=== PATIENT | male | born 1990 | race Caucasian/White ===

== ENCOUNTER 2018-01-31 22:04 | Emergency (ER) | END 2018-02-01 01:19 | disposition left against medical advice (07) ==

== ENCOUNTER 2018-02-01 09:27 | Emergency (ER) | END 2018-02-01 12:23 | disposition home or self-care (01) ==

== ENCOUNTER 2018-07-24 10:43 | Emergency (ER) | payer OTHER ==
[~2018-07-24] VITALS: Ht 165.1 cm; Wt 93.0 kg
[~2018-07-24 10:43] MED LIST: ALBU17AE; FLUT1DIS23; HYDR-3498 PO; HYDR-4011 PO; IBUP-1542 PO; NAPR-985 PO
[2018-07-24 10:47] VITALS: BP 137/81; PULSE 98; RESP 24; Ht 165.1 cm; Wt 93.0 kg
[2018-07-24] MEDS ORDERED: ALBUTEROL 0.083% (NEB) 2.5 MG/3 ML AMP NEB STA (11:35)
[2018-07-24] MEDS ORDERED: predniSONE 20 MG TAB PO STA (11:35)
[2018-07-24] MEDS ORDERED: IPRATROPIUM (NEB) 0.5 MG/2.5 ML AMP NEB STA (11:35)
[2018-07-24] MEDS ORDERED: BECL10.6 IH (12:27)
[2018-07-24] MEDS ORDERED: D-ME118S24 PO (12:27)
[2018-07-24] MEDS ORDERED: PRED20TA PO (12:27)
--- NOTE | 2018-07-24 20:26 | ERD ---
ER Documentation Chief Complaint Chief Complaint productive cough with yellowish colored, thick sputum x 3 months HPI 27-year-old male presents for productive cough times 3 months. Patient notes that the cough is productive of yellowish sputum. She also has associated runny nose. Denies any fevers. Patient has been trying Mucinex, Robitussin, without relief. Patient does have a history of asthma. ROS All systems reviewed and are negative except as per history of present illness. Medications Home Meds Active Scripts Prednisone* (Prednisone*) 20 Mg Tab, 20 MG PO DAILY for asthma exacerbation for 3 Days, #3 TAB Prov:PHILOMENA BURCH DO 07/24/18 D-Methorphan Hb/P-Epd HCl/Bpm (Buorspejrk-Gciowgoshrl-Et Syr) 118 Ml Syrup, 5 ML PO Q4H PRN for COUGH for 7 Days, #1 BOTTLE Prov:PHILOMENA BURCH DO 07/24/18 Beclomethasone Dipropionate (Qvar Redihaler (40 MCG)) 10.6 Gm Hfa.aeroba, 10.6 GM IH BID for asthma for 7 Days, #1 INH Prov:PHILOMENA BURCH 07/24/18 Hydrocodone/Acetaminophen ([place] 5-325 Tablet) 1 Each Tablet, 1 TAB PO Q6H PRN for PAIN, #7 TAB Prov:JUAN RAMON DAVIDSON PA-C 02/01/18 Ibuprofen* (Motrin*) 600 Mg Tab, 600 MG PO Q6, #30 TAB Prov:JUAN RAMON DAVIDSON PA-C 02/01/18 Naproxen* (Naprosyn*) 500 Mg Tablet, 500 MG PO BID PRN for PAIN AND/OR INFLAMMATION, #30 TAB Prov:JENNIFFER THORNTON PA-C 06/19/15 Hydrocodone Bit-Acetaminophen* ([place]leton*) 5-325 Mg Tab, 1 TAB PO Q6 PRN for PAIN, #7 TAB Prov:JENNIFFER THORNTON PA-C 06/19/15 Reported Medications Albuterol (Ventolin) 17 Gm Aerosol 12/26/09 Fluticasone/Salmeterol (Advair 250-50 Diskus) 1 Disk W/Dev Disk.w.dev 12/26/09 Allergies Allergies: Coded Allergies: No Known Allergies (Verified Allergy, Mild, 7/24/18) PMhx/Soc History of Surgery: No Anesthesia Reaction: No Hx Neurological Disorder: No Hx Respiratory Disorders: Yes (asthma) Hx Cardiac Disorders: No Hx Psychiatric Problems: No Hx Miscellaneous Medical Probl: No Hx Alcohol Use: No Hx Substance Use: No Hx Tobacco Use: No Smoking Status: Never smoker Physical Exam Vitals Vital Signs Date Temp Pulse Resp B/P (MAP) Pulse Ox O2 O2 Flow FiO2 Time Delivery Rate 07/24/18 87 18 95 21 11:50 07/24/18 98.2 98 24 137/81 95 10:47 (99) Physical Exam Const: No acute distress Head: Atraumatic Eyes: Normal Conjunctiva ENT: Normal External Ears, bilateral tympanic membrane intact without erythema or bulging noted, nose and Mouth examination normal, no tonsillar swelling or exudate noted Neck: Full range of motion. No meningismus. Resp: mild to moderate diffuse wheezing noted Cardio: Regular rate and rhythm, no murmurs Skin: No petechiae or rashes Ext: No cyanosis, or edema Neur: Awake and alert Psych: Normal Mood and Affect Results 24 hrs Current Medications Medications Dose Sig/Lakshmi Start Time Status Last (Trade) Ordered Route PRN Stop Time Admin Dose Reason Admin Albuterol 5 mg ONCE STAT 07/24/18 DC 07/24/18 (Proventil NEB 11:35 12:32 0.083% (Neb)) 07/24/18 11:38 Ipratropium 1.5 mg ONCE STAT 07/24/18 DC 07/24/18 [place] NEB 11:35 12:32 (Atrovent 07/24/18 11:38 0.02% (Neb)) Prednisone 60 mg ONCE STAT 07/24/18 DC 07/24/18 (Prednisone) PO 11:35 11:40 07/24/18 11:38 Procedures/MDM Medical Decision Making: Differential diagnosis includes but not limited to upper respiratory infection, pneumonia, sepsis, meningitis, asthma exacerbation Patient appeared well on physical examination, nontoxic appearing. There is low suspicion for pneumonia, sepsis, meningitis. Patient likely has an upper respiratory infection, likely viral that cause asthma exacerbation. There was diffuse wheezing noted on physical examination. Patient was given a breathing treatment in the ER with relief of symptoms. Discussed symptomatic treatment with patient's mother who agrees with plan. Patient given supportive medications on discharge, including inhaler, steroids, Bromfed. Patient advised to follow up with PCP in 1-2 days. Patient advised to return to ED for new or worsening symptoms. Patient stable on discharge from the ED. Disclaimer: Inadvertent spelling and grammatical errors are likely due to EHR/dictation software use and do not reflect on the overall quality of patient care. Also, please note that the electronic time recorded on this note does not necessarily reflect the actual time of the patient encounter. Departure Diagnosis: Primary Impression: Asthma exacerbation Condition: Fair Patient Instructions: Asthma Medications Referrals: [facility] YOU HAVE RECEIVED A MEDICAL SCREENING EXAM AND THE RESULTS INDICATE THAT YOU DO NOT HAVE A CONDITION THAT REQUIRES URGENT TREATMENT IN THE EMERGENCY DEPARTMENT. FURTHER EVALUATION AND TREATMENT OF YOUR CONDITION CAN WAIT UNTIL YOU ARE SEEN IN YOUR DOCTORS OFFICE WITHIN THE NEXT 1-2 DAYS. IT IS YOUR RESPONSIBILITY TO MAKE AN APPOINTMENT FOR FOLOW-UP CARE. IF YOU HAVE A PRIMARY DOCTOR --you should call your primary doctor and schedule an appointment IF YOU DO NOT HAVE A PRIMARY DOCTOR YOU CAN CALL OUR PHYSICIAN REFERRAL HOTLINE AT IF YOU CAN NOT AFFORD TO SEE A PHYSICIAN YOU CAN CHOSE FROM THE FOLLOWING [facility] [address] [facility]. [facility] [address] [facility] [facility] [address] [facility] [place] [facility] [address] [facility]. [facility] [address] [facility]. [facility]. [address] Additional Instructions: Call your primary care doctor TOMORROW for an appointment during the next 1-2 days.See the doctor sooner or return here if your condition worsens before your appointment time. PHILOMENA BURCH DO Jul 24, 2018 20:26
== END 2018-07-24 12:36 | disposition home or self-care (01) ==
LOC: FTE 10:43
DX: J45.901 Unspecified asthma with (acute) exacerbation (principal)
CPT/HCPCS: 94664; J7512; Z7502; Z7610